=== PATIENT | female | born 1975 | race Hispanic/Latino ===

== ENCOUNTER 2017-09-21 19:17 | Emergency (ER) | payer OTHER ==
[2017-09-21] MEDS ORDERED: GUAIFENESIN SUGAR-FREE 100 MG/5 ML UDCUP ONE ×2 (20:04→20:06)
[2017-09-21] MEDS ORDERED: ONDANSETRON ODT 4 MG TAB ONE (20:05)
[2017-09-21] MEDS ORDERED: ACETAMINOPHEN EXTRA STRENGTH 500 MG TABLET ONE (20:06)
[2017-09-21] MEDS ORDERED: IPRATROPIUM/ALBUTEROL SULFATE 3 ML SOLUTION IH ONE (20:17)
== END 2017-09-21 20:58 | disposition home or self-care (01) ==
LOC: EDH 19:17
DX: J20.9 Acute bronchitis, unspecified (principal); J06.9 Acute upper respiratory infection, unspecified; Z79.899 Other long term (current) drug therapy
CPT/HCPCS: 71045; 94640

== ENCOUNTER 2017-09-26 14:02 | Observation (INO) | payer OTHER ==
[~2017-09-26] VITALS: Ht 160 cm; Wt 69.9 kg
[2017-09-26] MEDS ORDERED: LEVOFLOXACIN 500 MG/D5W 100 ML 100 ML ONE (14:25)
[2017-09-26 14:40] LABS: BASOPHILS % (AUTO) 0.6 % (0.0-5.0); EOSINOPHILS % (AUTO) 0.2 % (0.0-8.0); HEMATOCRIT 40.8 % (36-48); LYMPHOCYTES % (AUTO) 32.3 % (21.0-51.0); MEAN CORPUSCULAR HEMOGLOBIN 29.4 pg (27.0-33.0); MEAN CORPUSCULAR HGB CONC 34.3 g/dL (32.0-36.0); MEAN CORPUSCULAR VOLUME 85.6 fL (79-99); MONOCYTES % (AUTO) 10.1 % (3.0-13.0); NEUTROPHILS % (AUTO) 56.8 % (40.0-77.0); PLATELET COUNT (AUTO) 194 K/uL (130-400); RED BLOOD CELL COUNT(AUTO) 4.76 MIL/uL (4.00-5.50); RED CELL DISTRIBUTION WIDTH 12.7 % (11.0-15.5); WHITE BLOOD COUNT (AUTO) 4.3 K/uL (4.8-10.8)
[2017-09-26 14:49] LABS: CREATININE 0.7 mg/dL (0.5-1.5); POTASSIUM 3.6 mmol/L (3.5-5.1)
[2017-09-26 14:54] LABS: ALBUMIN 3.8 g/dL (3.5-5.0); BILIRUBIN,TOTAL 0.3 mg/dL (0.2-1.0); TOTAL PROTEIN, SERUM 8.4 g/dL (6.0-8.3)
[2017-09-26 16:00] VITALS: BP 114/71
[2017-09-26 19:00] VITALS: BP 114/67
[2017-09-26] MEDS ORDERED: MAG HYDROX/AL HYDROX/SIMETH ES 30 ML SUSP UDCUP PO PRN (19:00)
[2017-09-26] MEDS ORDERED: ONDANSETRON HCL 4 MG/2 ML VIAL IVP PRN (19:00)
[2017-09-26] MEDS ORDERED: ACETAMINOPHEN 325 MG TAB PO PRN (19:00)
[2017-09-26 23:00] VITALS: BP 110/64
[2017-09-27 03:00] VITALS: BP 98/63
[2017-09-27 08:00] VITALS: BP 104/64
[2017-09-27] MEDS ORDERED: LEVOFLOXACIN 500 MG/D5W 100 ML 100 ML IV SCH (08:00)
[2017-09-27] MEDS ORDERED: PANTOPRAZOLE SODIUM 40 MG TABLET.DR PO SCH (09:00)
[2017-09-27] MEDS ORDERED: SODIUM CHLORIDE 0.9% 1000ML 1,000 ML IV SCH (10:15)
[2017-09-27 12:00] VITALS: BP 104/62
[2017-09-27] MEDS: GUAIFENESIN-DM 200/20 MG 10 ML PO PRN ×2 (12:19→16:16)
[2017-09-27 16:00] VITALS: BP 101/70
== END 2017-09-27 18:40 | disposition home or self-care (01) ==
LOC: EDH 14:02 → EDHIP 14:03 → INTOOBSV 14:03 → 3CH 15:53
PROVIDERS: ADMIT Internal Medicine; ATTEND Internal Medicine
DX: J18.9 Pneumonia, unspecified organism (principal)
CPT/HCPCS: 36415; 71046; 80053; 85025; 96361; 96365; 99285; G0378 ×29; J1956 ×2; J7030